=== PATIENT | female | born 2005 | race Caucasian/White ===

== ENCOUNTER 2024-10-22 13:29 | Emergency (ER) | payer OTHER ==
[~2024-10-22] VITALS: Ht 160 cm; Wt 55.5 kg
[2024-10-22] MEDS: diphenhydrAMINE 50MG/ML VIAL IV ONE (18:59)
[2024-10-22] MEDS: METOCLOPRAMIDE INJ 10MG/2ML VIAL IV ONE (18:59)
[2024-10-22] MEDS: KETOROLAC 30 MG/ML 1ML VIAL IV ONE (18:59)
[2024-10-22 19:33] VITALS: BP 110/71; TEMP 97.9; O2SAT 98
== END 2024-10-22 19:38 | disposition home or self-care (01) ==
LOC: M ED 13:29
DX: G43.909 Migraine, unspecified, not intractable, without status migrainosus (principal); F17.290 Nicotine dependence, other tobacco product, uncomplicated
CPT/HCPCS: 70450; 96374; 99284; J1200; J1885; J2765

== ENCOUNTER → 2025-02-24 | Outpatient (REF) | payer OTHER | LOC: M LAB REF 17:32 | PROVIDERS: ATTEND Nurse Practitioner Family | DX: R30.0 Dysuria (principal) ==

== ENCOUNTER → 2025-02-24 | Outpatient (REF) | payer OTHER | LOC: M LAB REF 18:14 | PROVIDERS: ATTEND Nurse Practitioner Family | DX: N89.8 Other specified noninflammatory disorders of vagina (principal); N94.10 Unspecified dyspareunia; R30.0 Dysuria ==